=== PATIENT | male | born 1945 | race Two or more races ===

== ENCOUNTER 2024-06-14 13:06 | Emergency (ER) | payer MEDICARE, OTHER ==
[~2024-06-14] VITALS: Ht 170.2 cm; Wt 69.4 kg
[2024-06-14 13:44] LABS: BASOPHILS % (AUTO) 0.4 % (0.0-2.0); EOSINOPHILS # (AUTO) 0.1 K/uL (0.0-0.7); HEMATOCRIT 47 % (39-51); HEMOGLOBIN 16.1 g/dL (13.5-17.5); LYMPHOCYTES # (AUTO) 0.9 K/uL (0.8-4.8); LYMPHOCYTES % (AUTO) 12.8 % (20.0-44.0); MEAN CORPUSCULAR HEMOGLOBIN 31 PG (26.0-33.0); MEAN CORPUSCULAR HGB CONC 34 g/dl (31.0-36.0); MEAN CORPUSCULAR VOLUME 90 fL (80-96); MONOCYTES # (AUTO) 0.7 K/uL (0.1-1.30); MONOCYTES % (AUTO) 9.7 % (2.0-12.0); NEUTROPHILS # (AUTO) 5.5 K/uL (1.8-8.9); NEUTROPHILS % (AUTO) 76.1 % (43.0-81.0); PLATELET COUNT (AUTO) 277 K/uL (150-450); RED BLOOD CELL COUNT(AUTO) 5.24 MIL/uL (4.5-6.0); RED CELL DISTRIBUTION WIDTH 14.3 % (11.5-15.0); WHITE BLOOD COUNT (AUTO) 7.2 K/uL (4.3-11.0)
[2024-06-14 13:51] LABS: CALCIUM, SERUM 9.2 mg/dL (8.5-10.1); CARBON DIOXIDE 29 mmol/L (21-32); CHLORIDE 102 mmol/L (98-107); CREATININE 0.7 mg/dL (0.6-1.3); SODIUM SERUM 139 mmol/L (136-145); UREA NITROGEN, BLOOD 11 mg/dL (7-18)
[2024-06-14 13:57] LABS: GLUCOSE 142 mg/dL (74-106)
[2024-06-14] MEDS ORDERED: hydrALAZINE HCL IV 20 MG VIAL ONE (14:37)
[2024-06-14] MEDS: hydrALAZINE HCL IV 20 MG VIAL IV ONE (14:42)
[2024-06-14] MEDS ORDERED: ACETAMINOPHEN ES 500 MG TABLET ONE (14:43)
[2024-06-14] MEDS: ACETAMINOPHEN ES 500 MG TABLET PO ONE (14:47)
[2024-06-14] MEDS: IV NS 0.9% 1,000 ML BAG IV ONE (15:02)
[2024-06-14 17:36] VITALS: BP 188/92; TEMP 98.3; O2SAT 99
== END 2024-06-14 17:38 | disposition short-term general hospital (02) ==
LOC: ER 13:47
DX: R51.9 Headache, unspecified (principal); R00.0 Tachycardia, unspecified; R06.00 Dyspnea, unspecified; R07.9 Chest pain, unspecified; I10 Essential (primary) hypertension; Z79.82 Long term (current) use of aspirin
CPT/HCPCS: 99285; 96374; 70450; 71045; 96361; 93005; 85025; 80048; 36415; 84484; J0360; J7030